=== PATIENT | female | born 1990 | race Caucasian/White ===

== ENCOUNTER 2024-07-07 17:31 | Emergency (ER) | payer OTHER ==
[~2024-07-07] VITALS: Ht 152.4 cm; Wt 104.3 kg
[2024-07-07 17:57] VITALS: BP 156/97; TEMP 98.5; O2SAT 98
[2024-07-07] MEDS ORDERED: IBUPROFEN 400 MG TABLET ONE (19:08)
[2024-07-07] MEDS: IBUPROFEN 400 MG TABLET PO ONE (19:15)
[2024-07-07] MEDS ORDERED: CYCL5TAB PO (19:52)
== END 2024-07-07 21:12 | disposition home or self-care (01) ==
LOC: ER 17:45
DX: M54.9 Dorsalgia, unspecified (principal); R07.9 Chest pain, unspecified; V49.40XA Driver injured in collision with unspecified motor vehicles in traffic accident, initial encounter; Y93.89 Activity, other specified; Y92.488 Other paved roadways as the place of occurrence of the external cause; Y99.8 Other external cause status
CPT/HCPCS: 71045-TC